=== PATIENT | female | born 1985 | race Caucasian/White ===

== ENCOUNTER 2018-03-23 11:03 | Emergency (ER) | payer OTHER ==
[~2018-03-23] VITALS: Ht 172.7 cm; Wt 72.6 kg
[2018-03-23] MEDS ORDERED: ONDANSETRON 4 MG/2 ML VIAL ONE (11:24)
[2018-03-23] MEDS ORDERED: HYDROMORPHONE 2 MG/1 ML DISP.SYRIN ONE (11:24)
[2018-03-23 11:26] LABS: *BILIRUBIN,URIN NEGATIVE (NEGATIVE); *BLOOD, URINE 1+ (NEGATIVE); *CLARITY,URINE CLEAR (CLEAR); *COLOR,URINE YELLOW (YELLOW); *KETONES,URINE NEGATIVE (NEGATIVE); *PROTEIN,URINE NEGATIVE (NEGATIVE); *UROBILINOGEN,URINE 0.2 E.U./dl (NORMAL); LEUKOCYTE ESTERASE ,URINE TRACE (NEGATIVE); NITRITE, URINE NEGATIVE (NEGATIVE); UGLUCOSE NEGATIVE (NEGATIVE)
[2018-03-23 11:27] LABS: *URINE HCG, QUAL NEGATIVE (NEGATIVE)
[2018-03-23] MEDS ORDERED: ONDANSETRON 4 MG/2 ML VIAL IM ONE (11:30)
[2018-03-23] MEDS ORDERED: HYDROMORPHONE 1 MG/1 ML DISP.SYRIN IM ONE (11:30)
[2018-03-23 11:32] LABS: BACTERIA,URINE FEW /HPF (NONE SEEN); SQUAMOUS EPITHELIAL CELL,UR MODERATE /HPF (NONE SEEN); WBC,URINE 0-3 /HPF (0-3)
--- NOTE | 2018-03-23 11:57 | NUR ---
PATIENT HRE FOR JASSI PAIN. WAS SEEN BY DR PATTERSON. XRAYS DONE, MEDICATIONS WERE GIVEN. PATIENT STATES PAIN HAS DIMINISHED SIGNIFICANTLY, DENIES NAUSEA. MALE FRIEND AT BEDSIDE TO DRIVE HER HOME. DC, RX (INCLUDING PRECAUTIONS) GIVEN AND EXPLAINED TO PATIENT IN FRIEND ([place] BY OTHER RN, JIMENA). BOTH STATE THEY UNDERSTAND ALL INSTRUCTIONS INCLUDING NO DRIVING NO ALCOHOL AND WHEN OK TO TAKE NEXT PAIN MED.
== END 2018-03-23 12:02 | disposition home or self-care (01) ==
LOC: ER 11:03
DX: M54.5 Low back pain (principal)
CPT/HCPCS: 72100; 81001; 84703; 96372 ×2; 99285; J1170; J2405; A4663

== ENCOUNTER 2018-12-10 21:41 | Emergency (ER) | payer MEDICAID, OTHER ==
[~2018-12-10] VITALS: Ht 170.2 cm; Wt 68.0 kg
--- NOTE | 2018-12-10 22:00 | NUR ---
Patient came for c/o spilling hot oil on her RLE while cooking at home. Patient c/o pain 02/28.
[2018-12-10] MEDS ORDERED: HYDROCODONE/APAP 10-325 MG TABLET PO ONE (22:30)
[2018-12-10] MEDS ORDERED: SILVER SULFADIAZINE 1% CREAM 50 GM TP ONE (22:30)
[2018-12-10] MEDS ORDERED: TDAP DIPH,PERTUSS,TET VAC/PF 0.5 ML DISP.SYRIN IM ONE ×2 (22:30→22:38)
[2018-12-10] MEDS ORDERED: SILVER SULFADIAZINE 1% CREAM 25 GM TUBE TP ONE (22:38)
[2018-12-10] MEDS ORDERED: HYDROCODONE/APAP 10-325 MG TABLET ONE (22:38)
--- NOTE | 2018-12-10 23:00 | NUR ---
Patient discharged to home in stable conditon. Written and verbal after care instructions given. Patient verbalizes understanding of instructions. Patient ambulated with stable gait.
[2018-12-10 23:34] VITALS: BP 110/73
== END 2018-12-10 23:00 | disposition home or self-care (01) ==
LOC: ER 21:41
DX: T24.201A Burn of second degree of unspecified site of right lower limb, except ankle and foot, initial encounter (principal); X11.8XXA Contact with other hot tap-water, initial encounter; Y93.89 Activity, other specified; Y92.89 Other specified places as the place of occurrence of the external cause; Y99.8 Other external cause status
CPT/HCPCS: 16020; 90715; A4663

== ENCOUNTER 2019-06-18 16:04 | Emergency (ER) | payer MEDICAID ==
[~2019-06-18] VITALS: Ht 177.8 cm; Wt 74.8 kg
[2019-06-18] MEDS ORDERED: PENICILLIN V POTASSIUM 500 MG TABLET PO ONE (17:15)
[2019-06-18] MEDS ORDERED: DEXAMETHASONE SOD PHOSPHATE 4 MG INJ IM ONE (17:15)
[2019-06-18] MEDS ORDERED: IBUPROFEN 800 MG TABLET PO ONE (17:15)
[2019-06-18] MEDS ORDERED: IBUPROFEN 800 MG TABLET ONE (17:39)
[2019-06-18] MEDS ORDERED: DEXAMETHASONE SOD PHOSPHATE 10 MG INJ ONE (17:39)
[2019-06-18] MEDS ORDERED: PENICILLIN V POTASSIUM 500 MG TABLET ONE (17:40)
--- NOTE | 2019-06-18 17:52 | NUR ---
Patient discharged to home in stable conditon. Written and verbal after care instructions given. Patient verbalizes understanding of instructions.
== END 2019-06-18 17:53 | disposition home or self-care (01) ==
LOC: ER 16:05
DX: J02.9 Acute pharyngitis, unspecified (principal)
CPT/HCPCS: 96372; 99283; J1100; A4663

== ENCOUNTER 2020-12-07 23:20 | Emergency (ER) | payer MEDICAID ==
[~2020-12-07] VITALS: Ht 172.7 cm; Wt 77.6 kg
--- NOTE | 2020-12-08 00:15 | NUR ---
pt ambulated to ER with c/o body aches, weakness and cough for 3 days. A/O x4, No SOB or labored breathing, no CP/Pressure. Denies any GI/ distress, no n/v/d. All pulses palpable.
--- NOTE | 2020-12-08 01:08 | NUR ---
Dr. Lowe at bedside, MSE in progress.
--- NOTE | 2020-12-08 02:58 | NUR ---
Patient discharged to home in stable condition. A/O x4, no SOB or labored breathing, afebrile. Denies any pain/discomfort at this time. Steady gait. Written and verbal after care instructions given. Patient verbalizes understanding of instructions. Stressed follow up or return to ER for worsening s/s.
[2020-12-08 03:00] VITALS: BP 115/70
== END 2020-12-08 03:00 | disposition home or self-care (01) ==
LOC: ER 23:22
DX: J06.9 Acute upper respiratory infection, unspecified (principal); Z20.822 Contact with and (suspected) exposure to COVID-19
CPT/HCPCS: 71045; A4663

== ENCOUNTER 2023-06-10 22:46 | Emergency (ER) | payer MEDICAID ==
[~2023-06-10] VITALS: Ht 165.1 cm; Wt 79.8 kg
[2023-06-10 23:29] LABS: *BILIRUBIN,URIN NEGATIVE (NEGATIVE); *BLOOD, URINE 1+ (NEGATIVE); *CLARITY,URINE CLEAR (CLEAR); *COLOR,URINE YELLOW (YELLOW); *KETONES,URINE NEGATIVE (NEGATIVE); *PROTEIN,URINE NEGATIVE (NEGATIVE); LEUKOCYTE ESTERASE ,URINE NEGATIVE (NEGATIVE); NITRITE, URINE POSITIVE (NEGATIVE); PH,URINE 5.5 (5.0-8.0); UGLUCOSE TRACE (NEGATIVE)
[2023-06-10 23:36] LABS: *URINE HCG, QUAL NEGATIVE (NEGATIVE)
[2023-06-11] MEDS ORDERED: CEPH500C2 PO (00:05)
[2023-06-11] MEDS: CEphaleXIN 500 MG CAPSULE PO ONE (00:26)
[2023-06-11] MEDS ORDERED: CEphaleXIN 500 MG CAPSULE ONE (00:27)
[2023-06-11 00:35] VITALS: BP 118/80; TEMP 97.9; O2SAT 97
[2023-06-11 00:41] LABS: WBC,URINE NONE SEEN /HPF (0-3)
[2023-06-11 00:42] LABS: BACTERIA,URINE FEW /HPF (NONE SEEN); SQUAMOUS EPITHELIAL CELL,UR MODERATE /HPF (NONE SEEN)
== END 2023-06-11 00:36 | disposition home or self-care (01) ==
LOC: ER 22:46
DX: J06.9 Acute upper respiratory infection, unspecified (principal); N39.0 Urinary tract infection, site not specified; R10.2 Pelvic and perineal pain; Z79.899 Other long term (current) drug therapy; Z20.822 Contact with and (suspected) exposure to COVID-19
CPT/HCPCS: 71045; 84703; 93005; A4606; A4663

== ENCOUNTER 2023-07-08 23:43 | Emergency (ER) | payer MEDICAID ==
[~2023-07-08] VITALS: Ht 172.7 cm; Wt 77.1 kg
[~2023-07-08 23:43] MED LIST: CEPH500C2 PO
[2023-07-09 01:12] LABS: *BILIRUBIN,URIN NEGATIVE (NEGATIVE); *CLARITY,URINE CLEAR (CLEAR); *COLOR,URINE YELLOW (YELLOW); *KETONES,URINE NEGATIVE (NEGATIVE); *PROTEIN,URINE NEGATIVE (NEGATIVE); *UROBILINOGEN,URINE 0.2 E.U./dl (NORMAL); BASOPHILS % (AUTO) 0.6 % (0.0-2.0); EOSINOPHILS # (AUTO) 0.2 K/uL (0.0-0.7); EOSINOPHILS % (AUTO) 4.3 % (0.0-7.0); HEMATOCRIT 32.1 % (31.2-41.9); HEMOGLOBIN 11.1 g/dL (10.9-14.3); LEUKOCYTE ESTERASE ,URINE NEGATIVE (NEGATIVE); LYMPHOCYTES # (AUTO) 1.6 K/uL (0.8-4.8); LYMPHOCYTES % (AUTO) 28.9 % (20.5-51.5); MEAN CORPUSCULAR HEMOGLOBIN 30.8 uug (24.7-32.8); MEAN CORPUSCULAR HGB CONC 35 g/dL (32.3-35.6); MEAN CORPUSCULAR VOLUME 88.9 fL (75.5-95.3); MONOCYTES # (AUTO) 0.2 K/uL (0.1-1.30); NEUTROPHILS # (AUTO) 3.5 K/uL (1.8-8.9); NEUTROPHILS % (AUTO) 62.2 % (38.5-71.5); NITRITE, URINE NEGATIVE (NEGATIVE); PH,URINE 7.5 (5.0-8.0); PLATELET COUNT (AUTO) 186 K/uL (179-408); RED BLOOD CELL COUNT(AUTO) 3.61 MIL/uL (3.63-4.92); RED CELL DISTRIBUTION WIDTH 12.6 % (12.3-17.7); UGLUCOSE NEGATIVE (NEGATIVE); WHITE BLOOD COUNT (AUTO) 5.6 K/uL (3.8-11.8)
[2023-07-09 01:14] LABS: *BLOOD, URINE TRACE (NEGATIVE)
[2023-07-09 01:15] LABS: *URINE HCG, QUAL NEGATIVE (NEGATIVE)
[2023-07-09 01:27] LABS: CALCIUM 9.1 mg/dL (8.5-10.1); CARBON DIOXIDE 29 mmol/L (21-32); CHLORIDE 106 mmol/L (98-107); CREATININE 0.7 mg/dL (0.6-1.3); GLUCOSE 92 mg/dL (74-106); POTASSIUM 4.2 mmol/L (3.5-5.1); SODIUM SERUM 143 mmol/L (136-145); UREA NITROGEN, BLOOD 8 mg/dL (7-18)
[2023-07-09 01:32] LABS: DIFFERENTIAL COMMENT 1
[2023-07-09 01:36] LABS: ALANINE AMINOTRANSFERASE 17 U/L (14-59); ALBUMIN 3.5 g/dL (3.4-5.0); ALKALINE PHOSPHATASE 51 U/L (50-136); ASPARTATE AMINOTRANSFERASE 19 U/L (15-37); BILIRUBIN,DIRECT 0.1 mg/dL (0.0-0.2); BILIRUBIN,TOTAL 0.3 mg/dL (0.2-1.0); TOTAL PROTEIN, SERUM 6.8 g/dL (6.4-8.2)
[2023-07-09 01:54] LABS: RBC,URINE 0-3 /HPF (0-3); WBC,URINE NONE SEEN /HPF (0-3)
[2023-07-09 01:55] LABS: BACTERIA,URINE FEW /HPF (NONE SEEN); SQUAMOUS EPITHELIAL CELL,UR MODERATE /HPF (NONE SEEN)
[2023-07-09] MEDS ORDERED: CEPH500C2 PO (02:07)
[2023-07-09] MEDS ORDERED: PHEN-704 PO (02:07)
[2023-07-09] MEDS ORDERED: PHENAZOPYRIDINE HCL 100 MG TABLET ONE (02:22)
[2023-07-09] MEDS ORDERED: CEphaleXIN 500 MG CAPSULE ONE (02:22)
[2023-07-09] MEDS: CEphaleXIN 500 MG CAPSULE PO ONE (02:31)
[2023-07-09] MEDS: PHENAZOPYRIDINE HCL 100 MG TABLET PO ONE (02:31)
[2023-07-09 02:36] VITALS: BP 110/68; TEMP 98; O2SAT 99
== END 2023-07-09 02:36 | disposition home or self-care (01) ==
LOC: ER 23:45
DX: R30.0 Dysuria (principal); R82.90 Unspecified abnormal findings in urine; R07.89 Other chest pain; R10.2 Pelvic and perineal pain; Z79.899 Other long term (current) drug therapy
CPT/HCPCS: 36415; 71045; 84484; 84703; 85025; 85730; 93005; A4606; A4663